=== PATIENT | male | born 1980 | race Caucasian/White ===

== ENCOUNTER 2017-08-28 10:05 | Day surgery (SDC) | payer BC ==
[2017-08-28] MEDS: GABAPENTIN 300 MG CAP PO ×4 (10:30→21:25)
[2017-08-28] MEDS: PERCOCET 5MG/325MG TAB PO ×2 (10:30)
[2017-08-28] MEDS: CelecoXIB 400 MG CAP PO ×2 (10:30)
[2017-08-28] MEDS: LR 1,000 ML IV ×4 (10:45→21:01)
[2017-08-28] MEDS ORDERED: LIDOCAINE 2% INJ 100 MG/5 ML SDV (FOR ANES.) As Ordered ×2 (11:08)
[2017-08-28] MEDS ORDERED: ROCURONIUM BROMIDE 50 MG/5 ML VIAL As Ordered ×4 (11:08→14:52)
[2017-08-28] MEDS ORDERED: fentaNYL 100 MCG/2 ML INJECTION (J3010) As Ordered ×2 (11:08)
[2017-08-28] MEDS ORDERED: PROPOFOL 200 MG/20 ML VIAL As Ordered ×2 (11:08)
[2017-08-28] MEDS ORDERED: dexameTHASONE 4 MG/ML 1ML VIAL (J1100) As Ordered ×2 (11:08)
[2017-08-28] MEDS ORDERED: MIDAZOLAM INJ 2 MG/2 ML VIAL (J2250) As Ordered ×2 (11:08)
[2017-08-28] MEDS ORDERED: ceFAZolin 2 GM/D5W 50 ML IV BAG (J0690 PER 500MG) As Ordered ×2 (13:41)
[2017-08-28] MEDS ORDERED: BUPIVACAINE HCL 0.5% 10 ML VIAL As Ordered ×2 (14:49)
[2017-08-28] MEDS ORDERED: BUPIVACAINE LIPOSOME/PF 1.3% 20 ML VIAL (13.3MG/ML)(EXPAREL) As Ordered ×2 (14:49)
[2017-08-28] MEDS: BUPIVACAINE/EPIN 0.25% 30 ML VIAL As Ordered ×2 (14:50)
[2017-08-28] MEDS: THROMBIN SOLN 20,000 UNITS KIT As Ordered ×2 (14:50)
[2017-08-28] MEDS: BACITRACIN PWD 50,000 UNITS VIAL As Ordered ×2 (14:50)
[2017-08-28] MEDS ORDERED: SUCCINYLCHOLINE 100 MG/5 ML SYRINGE (J0330) As Ordered ×2 (14:53)
[2017-08-28] MEDS ORDERED: diphenhydrAMINE INJ 50MG/ML VIAL (J1200) As Ordered ×2 (16:12)
[2017-08-28] MEDS ORDERED: ONDANSETRON 4MG/2ML VIAL (J2405) As Ordered ×2 (16:12)
[2017-08-28] MEDS ORDERED: GLYCOPYRROLATE INJ 0.2 MG/ML 2 ML VIAL As Ordered ×2 (16:18)
[2017-08-28] MEDS ORDERED: HYDROmorphone HCL 2 MG/ML 1ML VIAL (J1170) As Ordered ×2 (16:27)
[2017-08-28] MEDS ORDERED: HYDROMORPHONE HCL 0.5 MG/ 0.5 ML SYRINGE (J1170 PER 1) IV ×6 (17:00)
[2017-08-28] MEDS ORDERED: fentaNYL 100 MCG/2 ML INJECTION (J3010) IV ×2 (17:00)
[2017-08-28] MEDS ORDERED: PERCOCET 5MG/325MG TAB PO ×4 (17:00→17:15)
[2017-08-28] MEDS: ONDANSETRON 4MG/2ML VIAL (J2405) IV ×2 (17:07)
[2017-08-28] MEDS ORDERED: CYCLOBENZAPRINE 10 MG TAB PO ×2 (17:15)
[2017-08-28] MEDS ORDERED: METOCLOPRAMIDE INJ 10MG/2ML VIAL (J2765) As Ordered ×2 (17:35)
[2017-08-28] MEDS: METOCLOPRAMIDE INJ 10MG/2ML VIAL (J2765) IV ×2 (17:40)
[2017-08-28] MEDS ORDERED: PROMETHAZINE INJ 25 MG/ML VIAL (J2550) IV ×2 (17:45)
[2017-08-28] MEDS: D5W/LR 1,000 ML IV ×2 (20:00)
[2017-08-28] MEDS: ceFAZolin SOD 1 GM in D5W MINI-BAG PLUS 50 ML IV (23:05)
[2017-08-29] MEDS: D5W/LR 1,000 ML IV ×2 (04:03)
[2017-08-29] MEDS: PERCOCET 5MG/325MG TAB PO ×2 (06:56)
[2017-08-29] MEDS: GABAPENTIN 300 MG CAP PO ×2 (08:59)
[2017-08-29] MEDS: CelecoXIB (CeleBREX) 100 MG CAP PO ×2 (08:59)
[2017-08-29] MEDS: METAMUCIL (PSYLLIUM) PACKET PO ×2 (09:00)
== END 2017-08-29 10:10 | disposition home or self-care (01) ==
LOC: M SDC 10:05 → M MS5PR 18:20
DX: M54.16 Radiculopathy, lumbar region (principal); M54.42 Lumbago with sciatica, left side; Z79.899 Other long term (current) drug therapy; G47.30 Sleep apnea, unspecified
CPT/HCPCS: 63030